=== PATIENT | female | born 1970 | race Caucasian/White ===

== ENCOUNTER → 2017-11-13 12:31 | Outpatient (CLI) | payer MEDICAID, SELFPAY ==
--- NOTE | 2017-11-13 12:43 | MRI_ITS ---
STUDY: MRI LUMBAR SPINE WITH AND WITHOUT CONTRAST REASON FOR EXAM: Female, 47 years old. Multiple sclerosis with low back and leg pain TECHNIQUE: Standardized fat and water weighted pulse sequences were obtained in the sagittal and axial planes. 10 ml of Gadavist contrast material was administered for the contrast portion of the examination. COMPARISON: None FINDINGS: T12-L1: Normal endplates. Normal disc height, hydration and morphology. Normal bilateral facet joints. Normal central canal and bilateral lateral recesses. Normal bilateral intervertebral neural foramina. Normal lumbar lordosis. There is mild to moderate levo scoliosis. Normal conus medullaris that terminates at T12-L. L1-2:: Normal endplates. Normal disc height, desiccation and minor annular bulge with small left posterolateral/foraminal disc protrusion.. Normal bilateral facet joints. Normal central canal. Mild left lateral recess and neuroforaminal encroachment L2-3: Normal endplates. Normal disc space height with desiccation of the disc and small left posterolateral/foraminal disc protrusion. Normal facet joints. Normal central canal. Mild left lateral recess and neuroforaminal stenosis L3-4: Normal endplates. Normal disc height, desiccation and small left posterolateral/foraminal disc protrusion. Normal bilateral facet joints. Normal central canal. Mild left lateral recess and neuroforaminal stenosis L4-5: Normal endplates. Normal disc height, desiccation and normal morphology.. Bilateral facet arthropathy.. Normal central canal. Mild bilateral recess and neuroforaminal encroachment. L5-S1: Normal endplates. Normal disc height, desiccation and minimal annular bulge.. Mild facet arthropathy.. Normal central canal . Normal bilateral recesses. Normal bilateral intervertebral neural foramina. Normal visualized sacral ala. Normal visualized paraspinous soft tissue structures. MRI/Spine Lumbar W/WO Contrast IMPRESSION: Scoliosis and degenerative changes.. Multilevel spinal stenosis secondary to disc disease and bony hypertrophy. Electronically Signed: Len Cornelius MD at 22:45 EDT , Service support ,
== END ==
PROVIDERS: Family Provider Family Medicine; PCP Family Medicine; Visit Provider Internal Medicine
DX: M48.061 Spinal stenosis, lumbar region without neurogenic claudication (principal); M41.86 Other forms of scoliosis, lumbar region; M51.37 Other intervertebral disc degeneration, lumbosacral region; Z79.899 Other long term (current) drug therapy
CPT/HCPCS: 72158; A9585

== ENCOUNTER → 2020-02-26 06:30 | Outpatient (CLI) | payer BC, SELFPAY ==
--- NOTE | 2020-02-26 06:47 | MRI_ITS ---
STUDY: MRI BRAIN WITH AND WITHOUT CONTRAST REASON FOR EXAM: Female, 49 years old. ms f/u, NO NEW COMPLAINTS TECHNIQUE: Standardized multiplanar fat and water weighted pulse sequences were obtained. IV 20 cc dotarem was administered for the contrast portion of the examination. COMPARISON: 09/11/2016 FINDINGS: Normal size of the ventricles and extra-axial spaces for the patient''s age. Again noted are the periventricular and subcortical white matter hyperintensities, consistent with multiple sclerosis without evidence of enhancement or restricted diffusion to suggest active demyelination. There are no demonstrated new hyperintensities. Normal bilateral basal ganglia. Normal thalami. There is no extra-axial fluid accumulation. Normal flow voids within the major intracranial circulation suggesting patency by spin echo criteria. Normal venous enhancement. There is no enhancing intra-axial or extra-axial abnormality. Normal sella turcica, pituitary gland, infundibular stalk, optic chiasm and hypothalamus. Normal tectal plate and pineal gland. Normal midbrain, rowdy and medulla. Normal cerebellum. Normal basal cisterns. Normal bilateral temporal bones. Normal bilateral internal auditory canals. MRI/Brain W/WO Contrast IMPRESSION: Stable white matter plaque without evidence of active demyelination. Electronically Signed: Kenia House MD at 8:01 EDT Tel , Service support ,
== END ==
PROVIDERS: PCP Family Medicine
DX: G35 Multiple sclerosis (principal)
CPT/HCPCS: 70553; A9575

== ENCOUNTER 2020-03-23 13:40 | Emergency (ER) | payer BC, SELFPAY ==
[2020-03-23 13:41] VITALS: BP 161/113; PULSE 89; RESP 18; TEMP 36.4; O2SAT 98; BMI 33.9
[2020-03-23 13:47] VITALS: BP 143/80; PULSE 92; RESP 19; O2SAT 98
--- NOTE | 2020-03-23 14:09 | EKG12_ITS ---
Test Reason : CP Blood Pressure : / mmHG Vent. Rate : 079 BPM Atrial Rate : 079 BPM P-R Int : 116 ms QRS Dur : 084 ms QT Int : 368 ms P-R-T Axes : 052 062 055 degrees QTc Int : 421 ms Normal sinus rhythm Normal ECG Confirmed by BALWINDER TROTTER, LEELEE ([id number]), script editor JAVY RILEY ([id number]) on 03/31/2020 12:13:22 PM Referred By: KIMBERLY
--- NOTE | 2020-03-23 14:12 | ED.VIS.GEN ---
History of Present Illness Chief Complaint: Chest Pain Informant: Patient Narrative: This is a 49-year-old female history of MS who states that at approximately 0900 hrs. she developed a chest pressure just to the left of her sternum while at work. She denies any other symptoms. She states it was a bit atypical for her to have this. She went to urgent care and was referred here. She denies any prior cardiac history. She is a former smoker who now vapes. She denies any leg swelling DVT PE risk factors. Past Medical History - Allergies and Home Meds Allergies/Adverse Reactions: Allergies No Known Allergies Allergy (Verified 03/23/20 13:40) Primary Care Physician: Wilbur Gonzalez MD [Primary Care Provider] - Prior records reviewed: Yes Past Medical History: - - Multiple sclerosis Surgical History: noncontributory Smoking Status: Current every day smoker Alcohol: None Drugs: None Review of Systems General: Denies: Chills, Fever, Sweats Eyes: Denies: Visual changes - bilaterally, Diplopia ENT: Denies: Rhinorrhea, Sore throat Cardiovascular: Reports: Chest pain. Denies: Palpitations Respiratory: Denies: Dyspnea, Cough, Dyspnea on exertion Gastrointestinal: Denies: Abdominal pain, Nausea, Vomiting, Diarrhea, Melena, Hematochezia Genitourinary: Denies: Dysuria, Hematuria, Frequency Musculoskeletal: Denies: Back pain, Extremity Pain Skin: Denies: Rash, Wounds Neurological: Denies: Headache, Weakness, Numbness Physical Exam Vital Signs/Narrative: Vital Signs Temp Pulse Resp BP Pulse Ox 03/23/20 13:47 92 19 H 143/80 H 98 03/23/20 13:41 97.6 F L 89 18 161/113 H 98 Inital Vital Signs reviewed: Yes General: Well nourished, Well developed, Obese, No Acute Distress Head: Normocephalic, Atraumatic Eyes: Perrl, EOMI ENT: Moist mucous membranes, No rhinorrhea Neck: Supple, Nontender Cardiovascular: Regular rate, Regular rhythm, No murmurs Respiratory: No distress, CTA bilaterally, Chest nontender Abdomen: Soft, Nontender, Nondistended, Normal bowel sounds Back: Nontender, Normal Inspection Extremities: Nontender, No edema Skin: Normal color, No rash Neurological: Alert, Oriented x3, Cranial nerves II-XII grossly intact, Normal Strength, Normal Sensation Psychological: Normal affect, Normal Mood Diagnostic/Tx/Re-eval Clinical Impression(s) from Imaging Studies Chest X-Ray 03/23/20 14:25 IMPRESSION: Normal x-ray examination of the chest. Electronically Signed: Marcos Solano, at 14:57 EDT , Service support , Laboratory Last Values WBC 4.7 K/mm3 (4.4-11.0) 03/23/20 14:00 RBC 4.74 M/mm3 (4.2-5.4) 03/23/20 14:00 Hgb 13.6 g/dL (12.0-15.0) 03/23/20 14:00 Hct 43.1 % (37-47) 03/23/20 14:00 MCV 90.9 fL (81-99) 03/23/20 14:00 MCH 28.7 pg (27.0-32.0) 03/23/20 14:00 MCHC 31.6 g/dL (32-36) L 03/23/20 14:00 RDW Std Deviation 42.1 fl (35.1-43.9) 03/23/20 14:00 RDW Coeff of Brenda 12.7 % (11.6-14.6) 03/23/20 14:00 Plt Count 226 K/mm3 (150-450) 03/23/20 14:00 MPV 10.1 fl (6.2-12.0) 03/23/20 14:00 Immature Gran % (Auto) 0.200 % (0.0-0.9) 03/23/20 14:00 Neut % (Auto) 56.8 % (47-70) 03/23/20 14:00 Lymph % (Auto) 34.2 % (19-41) 03/23/20 14:00 Clarke % (Auto) 6.5 % (0-10) 03/23/20 14:00 Eos % (Auto) 1.7 % (0-5) 03/23/20 14:00 Baso % (Auto) 0.6 % (0-1) 03/23/20 14:00 Absolute Neuts (auto) 2.7 X10^3/uL (2.0-7.7) 03/23/20 14:00 Absolute Lymphs (auto) 1.62 X10^3/uL (0.83-4.51) 03/23/20 14:00 Nucleated RBC % 0 % (0-5) 03/23/20 14:00 D-Dimer Quant (PE/DVT) 0.36 FEU/ug/m (0.27-0.49) 03/23/20 14:00 Sodium 137 mmol/L (136-145) 03/23/20 14:00 Potassium 3.9 mmol/L (3.5-5.1) 03/23/20 14:00 Chloride 107 mmol/L (98-107) 03/23/20 14:00 Carbon Dioxide 23.0 mmol/L (21.0-32.0) 03/23/20 14:00 Anion Gap 7 (5-15) 03/23/20 14:00 BUN 12 mg/dL (7-18) 03/23/20 14:00 Creatinine 0.79 mg/dL (0.55-1.02) 03/23/20 14:00 Estim Creat Clear Calc 92.00 ml/min 03/23/20 14:00 Est GFR (MDRD) Af Amer 100 mL/min (>60) 03/23/20 14:00 Est GFR (MDRD) Non-Af 83 mL/min (>60) 03/23/20 14:00 BUN/Creatinine Ratio 15.2 RATIO (10-20) 03/23/20 14:00 Glucose 110 mg/dL (74-106) H 03/23/20 14:00 Calcium 9.1 mg/dL (8.5-10.1) 03/23/20 14:00 Troponin I < 0.015 ng/mL (<0.045) 03/23/20 14:00 - EKG Initial EKG Interpretation: Sinus Rhythm - EKG demonstrates a normal sinus rhythm at a rate of 79 without concerning features of ACS or ectopy - Medical Decision Making Troponin D-dimer negative. Chest x-ray normal Doc silhouette. EKG is a normal sinus rhythm. I do not see any emergent cause for the patient's symptoms. I think she is safe for discharge. Plan will be to have her follow-up primary care return if worsening or concerns. ED Disposition - Plan for ED Patient: Disposition: Home or Assisted Living Diagnosis: Chest pain Instructions: ED Chest Pain Atypical Unkn Cause Referrals: Wilbur Gonzalez MD [Primary Care Provider] - 3-5 Days
[2020-03-23 14:17] LABS: Absolute Lymphocyte Count 1.62 X10^3/uL (0.83-4.51); Absolute Neutrophil Count 2.7 X10^3/uL (2.0-7.7); Basophil# 0.03 X10^3/uL; Basophil% 0.6 % (0-1); Eosinophil# 0.08 X10^3/uL; Eosinophils% 1.7 % (0-5); Hematocrit 43.1 % (37-47); Hemoglobin 13.6 g/dL (12.0-15.0); Lymphocyte # 1.62 X10^3/ul (4.0); Lymphocyte % 34.2 % (19-41); Mean Corp Hgb Conc 31.6 g/dL (32-36); Mean Corpuscular Hgb 28.7 pg (27.0-32.0); Mean Corpuscular Volume 90.9 fL (81-99); Mean Platelet Vol. 10.1 fl (6.2-12.0); Monocyte# 0.31 X10^3/uL; Monocyte% 6.5 % (0-10); NRBC Flagged by Analyzer 0 % (0-5); Neutrophil # 2.69 X10^3/uL (2.7-7.7); Neutrophil % 56.8 % (47-70); Platelet Count 226 K/mm3 (150-450); RBC Distribution Width CV 12.7 % (11.6-14.6); RBC Distribution Width SD 42.1 fl (35.1-43.9); Red Blood Count 4.74 M/mm3 (4.2-5.4); White Blood Count 4.7 K/mm3 (4.4-11.0)
--- NOTE | 2020-03-23 14:25 | RAD_ITS ---
STUDY: X-RAY CHEST REASON FOR EXAM: Female, 49 years old. C/O CHEST PRESSURE X COUPLE HRS TECHNIQUE: Single AP portable view of the chest. COMPARISON: Comparison is made with prior examination of 01/09/2017. FINDINGS: EKG electrodes are seen. The lungs are clear and expanded. There is no demonstrated pleural abnormality. Normal size heart. Normal mediastinum and sunshine. Normal visualized pulmonary arteries. Normal visualized aortic arch and descending thoracic aorta. There are mild degenerative changes of the visualized thoracic spine. Normal visualized ribs, clavicles, and shoulders. There is no demonstrated abnormality of the visualized soft tissue structures of the upper abdomen. RAD/Chest 1 View (Portable) IMPRESSION: Normal x-ray examination of the chest. Electronically Signed: Marcos Solano, at 14:57 EDT , Service support ,
[2020-03-23 14:37] LABS: Anion Gap 7 (5-15); BUN 12 mg/dL (7-18); BUN/Creat Ratio 15.2 RATIO (10-20); Calcium,Total 9.1 mg/dL (8.5-10.1); Chloride 107 mmol/L (98-107); Creatinine, Serum 0.79 mg/dL (0.55-1.02); EST Glomerular Filtration Rate 83 mL/min (>60); Est Glom Filt Rate - Afr Amer 100 mL/min (>60); Glucose 110 mg/dL (74-106); Potassium 3.9 mmol/L (3.5-5.1); Sodium Level 137 mmol/L (136-145)
[2020-03-23 15:00] LABS: D-Dimer Quantitative (DVT/PE) 0.36 FEU/ug/m (0.27-0.49)
[2020-03-23 15:10] VITALS: BP 134/92; PULSE 77; RESP 12; O2SAT 98
[2020-03-23 15:26] VITALS: BP 134/92; PULSE 77; RESP 12; O2SAT 98
== END 2020-03-23 15:27 | disposition home or self-care (01) ==
PROVIDERS: Emergency Provider Emergency Medicine; PCP Family Medicine
DX: R07.9 Chest pain, unspecified (principal); F17.200 Nicotine dependence, unspecified, uncomplicated; E66.9 Obesity, unspecified
CPT/HCPCS: 71045; 80048; 84484; 85025; 85379; 93005; 99284; A4216

== ENCOUNTER → 2021-11-10 | Outpatient (CLI) | payer BC, SELFPAY ==
--- NOTE | 2021-11-10 06:38 | MRI_ITS ---
EXAM: MR HEAD WITHOUT AND WITH INTRAVENOUS CONTRAST CLINICAL INDICATION: MS TECHNIQUE: Multiplanar and multisequence MR images of the brain were obtained without and with intravenous contrast. This report was created using [employer] report generation technology. CONTRAST: IV DOTAREM 20 CC COMPARISON: MRI brain with and without contrast 07/16/2019. FINDINGS: BRAIN AND EXTRA-AXIAL SPACES: Multiple small nonenhancing T2 FLAIR hyperintensity foci in the white matter of both cerebral hemispheres. These are presumably MS plaques. No diffusion restriction throughout the brain parenchyma. No abnormal enhancing lesions intraaxially and extra-axially. No intra- or extra-axial hemorrhage. No evidence of acute infarct. No intracranial mass or mass effect. There is preservation of the rosales/white matter interface. Posterior fossa structures are unremarkable. Ventricles are appropriate for age. No hydrocephalus. Basal cisterns are patent. SELLA: Unremarkable. Normal sella turcica, pituitary gland, infundibular stalk, optic chiasm and hypothalamus. AUDITORY SYSTEM: Unremarkable. The internal auditory canals are patent. BONES/JOINTS: Unremarkable. No discrete lytic or blastic abnormalities. SINUSES: Unremarkable as visualized. Clear. MASTOID AIR CELLS: Unremarkable as visualized. Clear. ORBITS: Unremarkable as visualized. Both globes, extraocular muscles, optic nerves and retrobulbar fat appear unremarkable. VASCULATURE: Unremarkable as visualized. Normal flow voids in the major intracranial circulation. MRI/Brain W/WO Contrast IMPRESSION: 1. No MRI evidence of active enhancing MS plaques throughout the brain parenchyma. 2. Nonenhancing MS plaques in both cerebral hemispheres are unchanged in size and number. 3. No interval change when compared to 02/26/2020. Electronically Signed: Matt Bustillos MD at 11:11 EDT ,
== END | disposition home or self-care (01) ==
PROVIDERS: PCP Family Medicine; Referring Provider Internal Medicine; Visit Provider Internal Medicine
DX: G35 Multiple sclerosis (principal)
CPT/HCPCS: 70553; A9575

== ENCOUNTER → 2023-04-02 | Outpatient (CLI) | payer BC, SELFPAY ==
--- NOTE | 2023-04-02 | FLU_PTH ---
PATIENT: NYLA MONTANO LOC: [facility]#:[id number] AGE/SX: 52/F ROOM: RE04/02/[address]: Dr. Cassandra Perera MD : 1970 BED: DIS: 04/02/2023 SPEC #: [id number] RECD: 04/02/23 11:58 STATUS: RENATA REQ #: [id number] REEMA: 04/02/23 00:[address]: Cassandra Perera DEPT: CYTOLOGY RECD BY: Katie Blackwood ENTERED: 04/02/23 13:12 SP TYPE: Fluid OTHR DR: Dr. Wilbur Gonzalez MD Tissues: A - Thyroid gland, NOS B - Thyroid gland, NOS Procedures: Special Stain Group II Surgery Specimen Level IV Cytospin Fluid Cytology Other HEADER OPERATION: Fine needle aspiration of right thyroid PRE-OP DIAGNOSIS: Abnormal ultrasound TISSUE SUBMITTED: A. FNA of right thyroid, fluid, B. FNA of right thyroid slides DIAGNOSIS CYTOLOGY A. Right thyroid fluid, FNA (cytospin and cell block): Atypical follicular cells of undetermined significance (Warner category III). Adequate for evaluation. B. Right thyroid, FNA (smears): Atypical follicular cells of undetermined significance (Warner category III). Adequate for evaluation. SJ: 04/03/2023 COMMENT Immediate cytologic evaluation to determine adequacy is not applicable. Correlation with clinical, radiologic findings and appropriate follow up are necessary. Per recommendations and a clinician-approved plan (a call was made to the referring doctor about the recommendation), genomic testing (Afirma) has been submitted. Results will be reported as an addendum and faxed to clinician. CYTOLOGY STUDY Slides are reviewed. CYTOLOGY GROSS A. Received is 30 ml of murky brown fluid labeled with the patient's name and and designated per the requisition as right thyroid. Submitted for cytology preparation including cell block. B. Received are 6 smears labeled with the patient's name and designated per the requisition as right thyroid. Submitted for staining. 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 Please see complete report in e-chart or EMR
== END | disposition home or self-care (01) ==
LOC: LABSPEC 12:14
PROVIDERS: PCP Family Medicine; Referring Provider Surgery; Visit Provider Surgery
DX: R94.6 Abnormal results of thyroid function studies (principal)
CPT/HCPCS: 88108; 88161; 88305; 88313

== ENCOUNTER 2024-08-11 14:28 | Emergency (ER) | payer BC, SELFPAY ==
[2024-08-11 14:28] VITALS: BP 183/93; PULSE 96; RESP 14; O2SAT 99
[2024-08-11 14:29] VITALS: BP 207/99; PULSE 92; RESP 16; TEMP 36.7; O2SAT 100; BMI 38.8
--- NOTE | 2024-08-11 15:32 | ED.VIS.LOWEX ---
HPI History of Present Illness Chief Complaint: Lower Extremity Injury Informant: patient Narrative Narrative: 54-year-old female states that her left knee has been increasingly hurting and swelling a little for the past month or so, she presents to the ER stating it is time to get it looked at which she has not done yet. She states the right ones been bothering her to but not nearly as bad as the left. Bending it hurts but she is able. She denies any fevers, chills, redness, rashes, or other systemic symptoms. She takes no anticoagulants but notes that she has a stent in an artery of her left lower extremity, she has not been on any antiplatelets or anticoagulants but states she saw vascular yesterday in [place], and they said that it looked like it was developing some plaque and so they started her on clopidogrel and aspirin. She has had no significant differences in her knee since starting those medicines. [facility] Medical History Vascular insufficiency Migraines Multiple sclerosis Home Medications ?Medication ?Instructions ?Recorded ?Last Taken ?Type aspirin 81 mg tablet,delayed 81 mg PO DAILY 08/11/24 Unknown History release clopidogrel 75 mg tablet 75 mg PO DAILY 08/11/24 Unknown History diclofenac sodium 1 % topical gel 2.25 inch topical BID PRN PRN pain 08/11/24 Unknown Rx (Voltaren Arthritis Pain) #100 grams mirabegron 25 mg tablet,extended 25 mg PO DAILY 08/11/24 Unknown History release 24 hr prednisone 20 mg tablet 40 mg (2 x 20 mg) PO DAILY 7 days 08/11/24 Unknown Rx #14 tabs Allergy/AdvReac Type Severity Reaction Status Date / Time No Known Allergies Allergy Verified 08/11/24 14:28 Family History no significant family his Surgical History no surgical history Social History Smoking Status: Current every day smoker tobacco type: e-cigarettes ROS ROS ED Constitutional Constitutional ED: Denies chills or fever(s) Musculoskeletal Musculoskeletal: Reports extremity pain; Denies neck pain Integumentary Denies Abrasions, rash or wounds Neurologic Neurologic: Denies paresthesias or weakness EXAM Physical Exam Const Vital Signs: 08/11/24 14:28 08/11/24 14:29 Temperature 98.1 F Temperature Source Temporal Pulse Rate 96 92 Respiratory Rate 14 16 Blood Pressure 183/93 H 207/99 H Blood Pressure Mean 123 135 Pulse Ox 99 100 Oxygen Delivery Method Room Air Room Air Positive well nourished, well developed and obese Constitutional Narrative: Well-appearing in no distress General Appearance ED: well developed and NAD Nutritional Appearance: obese Neck full ROM and supple Back/Spine normal ROM and normal to inspection Extremity normal to inspection and full ROM Extremity Narrative: Possibly a mild effusion of the left knee, but not boggy/tight. There is no bony tenderness throughout the left lower extremity. She is full range of motion of the knee without difficulty. All 4 ligaments are stable with short endpoints and no significant discomfort on stressing. Extensor mechanism is intact and without difficulty or limitation. Is no calf tenderness, palpable cords, I am having difficulty feeling both of her posterior tibial pulses but they are present, brisk cap refill distally both lower extremities less than 2 seconds. There is no erythema over the left knee or excessive warmth. Neuro oriented x3, no focal motor deficits and no sensory deficits noted Sensorium / Orientation: alert Psych mental status grossly normal and thought process normal Skin no wounds Rashes: no rashes MDM MDM MDM Narrative Medical decision making narrative: 4 view x-ray series of the left knee were obtained and on my interpretation are fairly normal. According to radiology there is a small effusion. There is not appear to be significant arthritis. There is good amount of space in the joint space. It is possible she has a meniscus injury, is possible she has some other type of arthritis, other than osteoarthritis such as rheumatoid or a different rheumatologic issue. She does not have any rashes. I think she can follow-up with your doctor or orthopedics to whom she is referred, going to give her topical Voltaren since she is on clopidogrel and I do not want her to take NSAIDs systemically, as well as some prednisone which may help temporarily. She has excellent range of motion and no other signs of a septic arthritis. Radiography Diagnostic Testing: Clinical Impression(s) from Imaging Studies Knee X-Ray 08/11/24 15:40 IMPRESSION: 1. Soft tissue swelling without acute fracture. 2. If symptoms persist, further evaluation with CT is recommended. Reading Location: [facility] Discharge Plan Triage Chief Complaint: Lower Extremity Injury ED Provider: Martin Sagastume Dx/Rx/DC Orders Clinical Impression: Acute pain of left knee Instructions: Knee Pain, ED Bandage Elastic Wrap Prescriptions: New diclofenac sodium [Voltaren Arthritis Pain] 1 % gel 2.25 inch topical BID PRN PRN (Reason: pain) Qty: 100 0RF prednisone 20 mg tablet 40 mg PO DAILY 7 Days Qty: 14 0RF No Action clopidogrel 75 mg tablet 75 mg PO DAILY aspirin 81 mg tablet,delayed release (DR/EC) 81 mg PO DAILY mirabegron 25 mg tablet extended release 24 hr 25 mg PO DAILY Primary Care Provider: Wilbur Gonzalez Referrals: Wilbur Gonzalez MD [Primary Care Provider] - Chavo Judd DO [Med Staff - Active Staff] - As soon as possible Print Language: Kinyarwanda Disposition Disposition: Home, Self Care
--- NOTE | 2024-08-11 15:40 | RAD_ITS ---
EXAM: XR Left Knee Complete, 4 or More Views CLINICAL INDICATION: PAIN TECHNIQUE: Four or more views of the left knee. COMPARISON: No relevant prior studies available. FINDINGS: BONES/JOINTS: See below. SOFT TISSUES: Soft tissue swelling without acute fracture. RAD/Knee 4 or More Views IMPRESSION: 1. Soft tissue swelling without acute fracture. 2. If symptoms persist, further evaluation with CT is recommended. Reading Location: [facility]
[2024-08-11 16:38] VITALS: BP 207/99; PULSE 92; RESP 16; TEMP 36.7; O2SAT 100
== END 2024-08-11 16:43 | disposition home or self-care (01) ==
LOC: ED 15:37
PROVIDERS: Emergency Provider Emergency Medicine; PCP Family Medicine; Visit Provider Emergency Medicine
DX: M25.562 Pain in left knee (principal); G35 Multiple sclerosis; F17.290 Nicotine dependence, other tobacco product, uncomplicated; Z79.02 Long term (current) use of antithrombotics/antiplatelets; Z79.82 Long term (current) use of aspirin
CPT/HCPCS: 73564; 99282

== ENCOUNTER → 2024-09-02 | Outpatient (CLI) | payer BC, SELFPAY ==
--- NOTE | 2024-09-02 07:41 | MRI_ITS ---
PROCEDURE: BRAIN W/WO CONTRAST (MRIBRWW), 09/02/2024 REASON FOR EXAM: MS COMPARISON: None TECHNIQUE: Multisequence multiplanar MRI brain was performed with and without intravenous contrast, including sagittal FLAIR. Contrast: 22 mL Clariscan. FINDINGS: Cerebrum: No acute infarct, mass, or appreciable intracranial hemorrhage. Mild/moderate scattered supratentorial white matter abnormalities, largest of which measures 15 mm periventricular and/oriented perpendicular to the corpus callosum in the LEFT frontal centrum semi ovale. None demonstrate restricted diffusion or enhancement. Cerebellum: Unremarkable. Brainstem: Unremarkable. Ventricles/extra-axial spaces: Unremarkable. Major flow voids: Grossly unremarkable within limits of nondedicated technique. Paranasal sinuses: Unremarkable. Scalp/calvarium: Unremarkable. Orbits: Grossly unremarkable within limits of nondedicated technique. Other: No abnormal enhancement. MRI/Brain W/WO Contrast IMPRESSION: 1. Supratentorial white matter abnormalities are compatible with the provided h istory of multiple sclerosis. No findings to suggest active demyelination. 2. Additional description as above. Reading Location: [id number]
== END | disposition home or self-care (01) ==
PROVIDERS: PCP Family Medicine; Referring Provider Internal Medicine; Visit Provider Internal Medicine
DX: G35 Multiple sclerosis (principal)
CPT/HCPCS: 70553; A9575

== ENCOUNTER 2025-02-05 15:50 | Emergency (ER) | payer BC, SELFPAY ==
[2025-02-05 15:52] VITALS: BP 163/91; PULSE 123; RESP 22; TEMP 37.4; O2SAT 98; BMI 41.8
--- NOTE | 2025-02-05 17:08 | EX.ED.DYSGE1 ---
HPI History of Present Illness Chief Complaint: Cold Sx Informant: patient Onset/Context/Timing Onset: Days (3) Context: Sudden Onset Timing: Continuous Quality: Winded Location: Chest Worsened by: Coughing Relieved by: Nothing Narrative Narrative: Patient presents with cough and congestion that has been getting worse over the past 3 days. Patient states it came on rather suddenly. Patient states that she feels winded. Patient states this is worse after coughing episodes. Patient states nothing makes it better. Patient admits to some aching in her chest with coughing. Patient admits to some nasal congestion and headache. Patient denies any sputum production. Patient denies any fevers or chills. Patient does admit to some bodyaches and muscle aches. [facility] Medical History (Updated 02/05/25 @ 19:[address] Osmel Santos, ) Vascular insufficiency Migraines Multiple sclerosis Home Medications ?Medication ?Instructions ?Recorded ?Last Taken ?Type aspirin 81 mg tablet,delayed 81 mg PO DAILY 08/11/24 Unknown History release clopidogrel 75 mg tablet 75 mg PO DAILY 08/11/24 Unknown History diclofenac sodium 1 % topical gel 2.25 inch topical BID PRN PRN pain 08/11/24 Unknown Rx (Voltaren Arthritis Pain) #100 grams mirabegron 25 mg tablet,extended 25 mg PO DAILY 08/11/24 Unknown History release 24 hr prednisone 20 mg tablet 40 mg (2 x 20 mg) PO DAILY 7 days 08/11/24 Unknown Rx #14 tabs benzonatate 100 mg capsule 200 mg (2 x 100 mg) PO TID PRN PRN 02/05/25 Unknown Rx Cough #20 CAPSULES Allergy/AdvReac Type Severity Reaction Status Date / Time No Known Allergies Allergy Verified 02/05/25 15:52 Surgical History Hx of lithotripsy Hx of vascular surgery Social History Smoking Status: Current every day smoker tobacco type: e-cigarettes ROS ROS ED Constitutional Constitutional ED: Denies chills or fever(s) Eyes Eyes: Denies blurry vision or change in vision ENT ENT ED: Reports sore throat; Denies rhinorrhea Cardiovascular Cardiovascular: Reports chest pain; Denies palpitations Respiratory/Chest Respiratory/Chest: Reports cough and dyspnea; Denies sputum Gastrointestinal Gastrointestinal: Denies nausea or vomiting Genitourinary Genitourinary ED: Denies dysuria or hematuria Musculoskeletal Musculoskeletal: Reports back pain; Denies neck pain Integumentary Denies abscess or rash Neurologic Neurologic: Reports headache(s); Denies weakness Allergic/Immunologic Allergic/Immunologic ED: Denies mouth swelling or urticaria EXAM Physical Exam Const Vital Signs: 02/05/25 15:52 02/05/25 17:29 02/05/25 19:09 Temperature 99.4 F H Temperature Source Oral Pulse Rate 123 H 108 H 108 H Respiratory Rate 22 H 20 H 16 Respiratory Pattern Normal Blood Pressure 163/91 H 155/72 H Blood Pressure Mean 115 99 Pulse Ox 98 96 Oxygen Delivery Method Room Air Room Air Positive well nourished and well developed General Appearance ED: well developed and NAD HEENT Reports moist mucous membranes Neck supple and no JVD Resp normal respiratory effort Auscultation: wheezes expiratory wheezes Cardio regular rhythm Rate: tachycardic GI non-tender and non-distended Palpation: soft Neuro oriented x3, CN's II-XII intact bilaterally and no sensory deficits noted Sensorium / Orientation: alert Motor Exam: strength 5/5 throughout Psych mental status grossly normal MDM MDM MDM Narrative Medical decision making narrative: Differential diagnosis includes pneumonia, bronchitis, viral upper respiratory infection, and reactive airway disease. Chest x-ray will be obtained to assess for pneumonia or bronchitis. COVID-19, influenza, and RSV PCR will be obtained to assess for viral upper respiratory infection. Lab Data Attestation: I reviewed the patient's lab results. Lab results narrative: COVID-19 PCR was reviewed and was negative. Influenza PCR was reviewed and was negative for influenza A and influenza B. RSV PCR was reviewed and was negative. Radiography Diagnostic Testing: Clinical Impression(s) from Imaging Studies Chest X-Ray 02/05/25 17:17 IMPRESSION: NO ACUTE FINDINGS. Reading Location: [facility] PA and lateral chest x-ray was obtained. There are 2 views. On my independent interpretation, lung goodwin are clear. There is normal cardiac silhouette. Bony thorax is normal. There is no acute process noted. Radiologist also interpreted the x-ray and agrees. Treatment and Re-Evaluation :: Patient was given a DuoNeb aerosol here. Patient had minimal improvement with this. Patient was advised that this is most likely a viral upper respiratory infection. Patient was given a dose of Tessalon here. Patient is given a prescription for Tessalon Perles. Patient was instructed to follow-up with her primary care physician in 5 to 7 days. Patient understood and was agreeable with the plan. All questions were answered. Discharge Plan Triage Chief Complaint: Cold Sx ED Provider: Osmel Santos Dx/Rx/DC Orders Clinical Impression: Viral upper respiratory tract infection, Cough, Electronic cigarette use Instructions: ED URI, Viral, No Abx (Adult) Prescriptions: New benzonatate 100 mg capsule 200 mg PO TID PRN PRN (Reason: Cough) Qty: 20 0RF No Action clopidogrel 75 mg tablet 75 mg PO DAILY aspirin 81 mg tablet,delayed release (DR/EC) 81 mg PO DAILY mirabegron 25 mg tablet extended release 24 hr 25 mg PO DAILY diclofenac sodium [Voltaren Arthritis Pain] 1 % gel 2.25 inch topical BID PRN PRN (Reason: pain) Qty: 100 0RF prednisone 20 mg tablet 40 mg PO DAILY 7 Days Qty: 14 0RF Primary Care Provider: Wilbur Gonzalez Referrals: Wilbur Gonzalez MD [Primary Care Provider] - 5-7 Days Print Language: Indonesian Disposition Disposition: Home, Self Care
--- NOTE | 2025-02-05 17:17 | RAD_ITS ---
PROCEDURE: CHEST PA AND LATERAL 02/05/2025 REASON FOR EXAM: COUGH TECHNIQUE: Procedure Code: RADCXR Modality: DX Procedure: CHEST PA AND LATERAL COMPARISON: 03/23/2020 FINDINGS: Hardware: None. Heart: The heart size is normal. Mediastinum: The mediastinal contour is unremarkable. Lungs: The lungs are clear. Bones: The bones are unremarkable. RAD/Chest PA and Lateral IMPRESSION: NO ACUTE FINDINGS. Reading Location: [facility]
[2025-02-05 17:29] VITALS: PULSE 108; RESP 20
[2025-02-05 19:09] VITALS: BP 155/72; PULSE 108; RESP 16; O2SAT 96
[2025-02-05 20:12] VITALS: BP 148/70; PULSE 108; RESP 16; TEMP 37.1; O2SAT 96
== END 2025-02-05 20:13 | disposition home or self-care (01) ==
PROVIDERS: Emergency Provider Emergency Medicine; PCP Family Medicine; Visit Provider Emergency Medicine
DX: J06.9 Acute upper respiratory infection, unspecified (principal); G35 Multiple sclerosis; F17.290 Nicotine dependence, other tobacco product, uncomplicated; Z79.899 Other long term (current) drug therapy
CPT/HCPCS: 71046; 87631; 94640; 99282; A4216